=== PATIENT | female | born 1980 | race Caucasian/White ===

== ENCOUNTER 2023-07-24 10:46 | Emergency (ER) | payer SELFPAY ==
[2023-07-24 10:57] VITALS: BP 137/100
--- NOTE | 2023-07-24 12:26 | ED.GENMED ---
History of Present Illness
General
Chief Complaint: Crisis Evaluation
Time Seen by Provider: 07/24/23 11:59
Travel History
Have you had any contact with someone who has COVID-19?: Unable to Answer
Do you have any symptoms of coronavirus? Fever > 100 degrees, chills, cough, shortness of breath, sore throat, loss of taste or smell, muscle aches, or headache?: Unable to Answer
History of Present Illness
History of Present Illness:
HPI: The patient presents with her sisters that brought her here concerns for her mental health. She had been taking Lexapro until recently. She went to switch to 'psychedelics'. She appears to be a very unreliable historian. The patient was
briefly seen by crisis upon arrival. She was sent here for medical evaluation as well.
EXAM:
GENERAL: Well appearing in no distress
HEENT: Moist oral mucosa
CARDIOVASCULAR: No murmurs, normal heart rate and rhythm, No chest wall tenderness
PULMONARY: No respiratory distress, breath sounds are clear and equal
ABDOMEN: Soft with no peritoneal signs, no tenderness
NEUROLOGIC: Excellent strength all extremities, no coordination deficits
PSYCHIATRIC: At times the patient appears to have appropriate mental status however on further discussion the patient has limited insight and judgment, appears delusional and paranoid at time, she also has tangential thought
EXTREMITIES: Nontender, no edema, moves all extremities equally
SKIN: No rash, no lesions
ED COURSE:
12:10 PM: I initially evaluated
NUMBER AND COMPLEXITY OF PROBLEMS ADDRESSED AT THE ENCOUNTER
� Chronic conditions affecting care: Panic disorder, history of skin cancer
� Acute Exacerbation and/or Progression of Chronic Illness: This is an acute problem
� Differential Diagnosis includes: Acute psychosis, drug reaction/delta THC overuse, Lexapro withdrawal
AMOUNT AND/OR COMPLEXITY OF DATA TO BE REVIEWED AND ANALYZED
� I performed an independent evaluation of and my interpretation is:
EKG:
CT: CT brain was negative
X-rays:
Laboratory Studies: CBC and chemistries unremarkable, alcohol undetected, UDS positive for marijuana as expected
Other:
� Review of other/old records: No old records available for review in [facility]
� Clinical information was obtained by an independent historian: I spoke to her sisters at bedside
� Prescriptions/Medications Considered but not given:
� Further testing considered but not performed:
RISK OF COMPLICATIONS AND/OR MORBIDITY OR MORTALITY OF PATIENT MANAGEMENT
� Social determinants of health affecting care: Lives at home by herself
� Discussion with other providers: I discussed with Dr. Cox; crisis evaluated
� Escalation of care including admission/observation vs risk of discharge considered: The patient appears delusional with tangential thoughts. At times she is cooperative. While in ED, she had escalating behavior with
increasing delusion. We did give an IM dose of Zyprexa. I spoke to crisis several times, just before 3 PM, we are told that the 302 was upheld. Overall her clinical condition has improved after Zyprexa was given. Dr. Cox evaluated patient
and suggested we obtain CT imaging of the brain therefore I have ordered this study. RN also giving Ativan to help facilitate CT imaging.
Phy Exam
Physical Exam
Physical Exam:
See HPI
Course
Orders/Labs/Results
Orders:
Orders
07/24/23 12:30
Alcohol Urgent
Complete Blood Count/With Diff Urgent
Comprehensive Metabolic Panel Urgent
TSH Reflex To Free T4 Urgent
Comment: ADD ON
07/24/23 13:09
Olanzapine [Zyprexa] 10 mg IM NOW STA
07/24/23 13:15
Sterile Water [Sterile Water For Injection] 10 ml .ROUTE .STK-MED ONE
07/24/23 13:24
Urine Drug Abuse Screen Urgent
Date Specimen was Collected: 07/24/23
Time Specimen was Collected: 13:12
07/24/23 15:12
CT Head W/o Iv Contrast Urgent
Comment:
Reason For Exam: alt ms
Consult Psychiatry [PSYCHIATRY CONSULT] Urgent
Consulting Provider: Toney Cox
Was physician already notified: Yes
Reason for consult: psychosis
07/24/23 15:18
Lorazepam [Ativan] 1 mg PO Q4HPRN PRN
07/24/23 18:09
Add On- LAB Urgent
Tests Added?: tsh reflex t4
07/25/23 18:05
Bisacodyl [Dulcolax] 10 mg PO DAILYPRN PRN
07/25/23 22:00
Quetiapine Fumarate [Seroquel] 25 mg PO HS
07/26/23 07:38
Asenapine Sublingual [Saphris] 5 mg SL NOW STA
07/26/23 12:32
Bisacodyl [Dulcolax] 10 mg PO DAILYPRN PRN
07/26/23 18:58
Haloperidol Lactate [Haldol] 2.5 mg IM NOW STA
07/26/23 22:00
Quetiapine Fumarate [Seroquel] 50 mg PO HS
Abnormal Lab Results
07/24/23 07/24/23
12:30 13:24
Lymphocytes % 16.9 L %
(20.5-51.1)
Sodium 134 L mmol/L
(135-145)
Carbon Dioxide 21 L mmol/L
(22-30)
Glucose 101 H mg/dl
(70-99)
U Marijuana (THC) Screen Positive H
(Negative)
07/24/23 12:30
07/24/23 12:30
Vital Signs
Initial and Last Documented VS:
Initial Vital Signs
Temp Pulse Resp BP Pulse Ox
99.4 F 100 17 137/100 99
07/24/23 10:57 07/24/23 10:57 07/24/23 10:57 07/24/23 10:57 07/24/23 10:57
Last Documented Vital Signs
Temp Pulse Resp BP Pulse Ox
98.5 F 65 16 142/95 100
07/26/23 08:00 07/26/23 19:00 07/26/23 19:00 07/26/23 19:00 07/26/23 19:00
*Critical Care Note
Total Time (30-74mins, 75-104mins- exclusive of procedures): Not Applicable
ED Attending Note
-
Portions of this chart may have been created with voice recognition software.� Occasional wrong word or��sound alike� substitutions may have occurred due to the inherent limitations of voice recognition software.
Discharge Plan
Departure
Patient Disposition: Psych Facility
Date of Disposition: 07/24/23
Time of Disposition: 15:26
Discharge Problem:
Acute psychosis
Prescriptions:
No Action
No Current Medications
0
Rx Instructions:
the pt stated to this RN that she stopped taking all medications
Referrals:
NONE,* [Family Provider] -
Interventions
Interventions:
*Risk Screen - Suicide Last Done: 07/26/23 08:00
*General Assessment Last Done: 07/24/23 13:48
*Neglect/Abuse Screening Last Done: 07/24/23 13:48
ED- Fall Risk Assessment Last Done: 07/26/23 08:00
*ED COVID-19 Vaccine History Last Done: 07/24/23 13:48
ED-Psychological Assessment Last Done: 07/26/23 08:00
[2023-07-24 12:46] LABS: % Basophils 0.6 % (0-2); % Eosinophils 0.7 % (0-6); % Immature Granulocytes 0.2 % (0-0.5); % Lymphocytes 16.9 % (20.5-51.1); % Monocytes 7.3 % (1.7-9.3); % Neutrophils 74.3 % (42.2-75.2); Absolute Basophils 0.1 10^3/uL (0-0.2); Absolute Eosinophils 0.1 10^3/uL (0-0.7); Absolute Lymphocytes 1.4 10^3/uL (1.2-3.4); Absolute Monocytes 0.6 10^3/uL (0.1-0.6); Absolute Neutrophils 6.3 10^3/uL (1.4-6.5); Hematocrit 39.7 % (37.0-47.0); Mean Corp Hgb Conc. 35.3 g/dL (33.0-37.0); Mean Corpuscular Hgb 30.9 pg (27.0-31.0); Mean Corpuscular Volume 87.6 fL (81.0-99.0); Mean Platelet Volume 8.9 fL (7.4-10.4); Nucleated Red Blood Cells % 0 %; Platelet Count 248 10^3/uL (130-400); Red Blood Cell Count 4.53 10^6/uL (4.20-5.40); Red Cell Dist. Width 11.9 % (11.5-14.5); White Blood Cell Count 8.5 10^3/uL (4.8-10.8)
[2023-07-24 13:02] LABS: ALT (SGPT) 18 U/L (0-35); AST (SGOT) 24 U/L (14-36); Alkaline Phosphatase 45 U/L (38-126); Calcium 9.6 mg/dl (8.4-10.2); Carbon Dioxide 21 mmol/L (22-30); Chloride 103 mmol/L (98-107); Sodium 134 mmol/L (135-145); Total Protein 7.7 g/dl (6.3-8.2)
[2023-07-24 13:17] LABS: Blood Urea Nitrogen 8 mg/dl (7-17); Glucose 101 mg/dl (70-99); Potassium 3.7 mmol/L (3.5-5.1); Total Bilirubin 1.1 mg/dl (0.2-1.3); eGFR > 60.00
[2023-07-24 13:20] LABS: Alcohol None Detected
[2023-07-24] MEDS: ZYPREXA 10 MG IM (13:21)
[2023-07-24 14:03] LABS: Amphetamines Negative (Negative); Barbiturates Negative (Negative); Benzodiazepines Negative (Negative); Buprenorphine Negative (Negative); Cocaine Negative (Negative); Marijuana Positive (Negative); Methadone Negative (Negative); Methamphetamines Negative (Negative); Opiates Negative (Negative); Phencyclidine Negative (Negative); Tricyclic Antidepressants Negative (Negative)
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
[2023-07-24] MEDS: ATIVAN 1 MG PO (15:44)
[2023-07-24 19:15] LABS: TSH Reflex To Free T4 0.79 uIU/ml (0.47-4.68)
[2023-07-25 09:20] VITALS: BP 132/96
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
[2023-07-25] MEDS: DULCOLAX 10 MG PO (18:47)
[2023-07-25] MEDS: SEROQUEL 25 MG PO (21:31)
[2023-07-26] MEDS: DULCOLAX 10 MG PO (06:21)
--- NOTE | 2023-07-26 07:38 | EDRN ---
this RN heard the pt screaming and yelling, this RN entered the crisis area and the pt stated to this RN, 'I'm sorry that i'm yelling i'm just upset, i don't think that i need to be here and i am just tired, and dirty, and want to go home, i want my
cell phone, i feel dirty i haven't had a fucking shower, and i am just frustrated, i'm sorry that i was yelling, can i please speak to someone about my plan and how i can get my cell phone?, this RN assured the pt that this RN would have someone
from crisis speak with her, the pt then walked up to this RN and put out her hand to shake this RN's hand and stated to this RN, 'Thank you so much, i'm sorry again for yelling', this RN notified Dr. Worley of the pt feeling anxious, and frustrated,
the pt is pacing back and forth in crisis room, will continue to monitor the pt closely
--- NOTE | 2023-07-26 07:46 | EDRN ---
this RN called crisis and notified them that the pt wants to speak with them about a plan for her and would like a phone to call her family, crisis stated that they would come to the pts bedside to speak with them
--- NOTE | 2023-07-26 07:50 | ED.CRISIS ---
ED Crisis Note
ED Crisis Note
Subjective:
43-year-old female here on a 302 for delusions and psychosis. 303 hearing pending. No events overnight but this morning patient is pacing, agitated and screaming exhibiting bizarre behavior.
Objective:
Patient is yelling and screaming with intermittent periods of calm. She is pacing around the room appears anxious with pressured speech.
Assessment/Plan:
43-year-old female here on a 302 for delusions and psychosis with a 303 hearing pending. She is becoming somewhat agitated and aggressive this morning but for now is redirectable. Will continue to monitor closely medicate if needed. Psychiatry on
board.
--- NOTE | 2023-07-26 07:52 | EDRN ---
Radha from crisis and Dr. Worley are at the pts bedside, the pt stated to Dr. Worley, 'I know why you're here i don't need medication i can calm myself down i was just yelling because i don't know what's going on and i feel like i'm not being heard,
i can calm myself down i don't need medication', Radha from crisis notified the pt that her hearing is at 10am, the pt stated, 'Thank god okay now i can calm down now i can relax, i won't yell anymore, i just wanted to know that's going on, i'm
sorry and thank you for letting me know', the pt is now sitting on the floor in her room with a blanket over her shoulders, no s/s of distress, the pt allowed this RN to obtain vital signs, no c/o pain, no c/o SOB, breakfast has been ordered for the
pt, will continue to monitor the pt closely
[2023-07-26 08:00] VITALS: BP 136/75; BMI 28.2
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
[2023-07-26 19:00] VITALS: BP 142/95
== END 2023-07-26 23:08 ==
LOC: EMR 10:46
PROVIDERS: CONSULT PHYSICIAN Psychiatry & Neurology Psychiatry; EMERGENCY PHYSICIAN Emergency Medicine
DX: F23 Brief psychotic disorder (principal); F41.0 Panic disorder [episodic paroxysmal anxiety]; F12.90 Cannabis use, unspecified, uncomplicated; Z85.828 Personal history of other malignant neoplasm of skin
CPT/HCPCS: 99285; 96372; 70450; 80053; 80306; 82077; 84443; 85025; J2358